=== PATIENT | female | born 1950 | race Caucasian/White ===

== ENCOUNTER 2019-01-02 09:48 | Emergency (ER) | payer OTHER, BC ==
[2019-01-02 09:54] VITALS: BP 136/93; PULSE 98; TEMP 98.9; BMI 25.0
[2019-01-02] MEDS ORDERED: RABIES IMMUNE GLOBULIN 300 UNITS/1 ML VIAL IM ONE ×2 (10:10→10:18)
[2019-01-02] MEDS ORDERED: RABIES VACCINE (PCEC)/PF 2.5 UNIT/VIAL IM ONE ×2 (10:14→12:00)
[2019-01-02] MEDS ORDERED: DIPHTH,PERTUSS(ACELL),TET 0.5 ML DISP.SYRIN IM ONE (10:15)
[2019-01-02] MEDS ORDERED: RABIES IMMUNE GLOBULIN 300 UNITS/1 ML VIAL ONE ×2 (10:34→10:35)
--- NOTE | 2019-01-02 10:57 | PDOC ---
Attending Attestation - Resident Resident Name: Shantanu Terry - ED Attending Attestation I have performed the following: I have examined & evaluated the patient, The case was reviewed & discussed with the resident, I agree w/resident's findings & plan, Exceptions are as noted - HPI HPI: 01/02/19 10:57 Patient was in her dark bedroom and was bitten by a flying animal. Swelling and erythema of the mid forearm, volar aspect. No pain. - Physicial Exam PE: 01/02/19 10:58 Physical exam shows only induration and erythema of the volar aspect of the right forearm, midportion, without tenderness. There is a suggestion of a small puncture centrally. No tenderness swelling or erythema proximally or distally. No lymphadenopathy. - Medical Decision Making 01/02/19 10:59 Assessment: Possible bat bite Plan: Rabies immune globulin, rabies immunization, [facility], follow-up primary physician. 01/02/19 11:32 Patient tolerated the injection of immune globulin and the first dose of rabies vaccine without significant reaction. Injection was performed by Dr. Terry in the usual manner around the affected wound.
--- NOTE | 2019-01-02 11:14 | PDOC ---
History of Present Illness - General Chief Complaint: Bite Stated Complaint: REDNESS, ACHY, RT LOWER ARM, UNK BITE Time Seen by Provider: 01/02/19 10:00 History Source: Patient Exam Limitations: No Limitations - History of Present Illness Initial Comments: 01/02/19 10:27 68 yo female pmh of HTN, HLD and hypothyroidism presents to the ED with a complaint of being bitten possibly by a bat. Pt states while with her dog in her poorly lit bedroom, around 7 30 am, a small dark creature flew in and bit her on her right forearm then quickly flew away. Sudden onset of pain, redness and swelling to location of bite with a small punctuate hole. Denies weakness/ sensory deficits to the right hand, extension of redness, swelling or pain from the location of the bite. Pt cleaned the wound well with alcohol swabs and baking soda, called a bat valver who states "it is unusual for bats to be out this time of year but due to warm weather, it is possible that it was a bat. " Past History - Past Medical History Allergies/Adverse Reactions: Allergies Allergy/AdvReac Type Severity Reaction Status Date / Time Penicillins Allergy Intermediate Verified 01/02/19 09:51 Home Medications: Ambulatory Orders Amlodipine Besylate 5 mg PO DAILY 05/02/16 Levothyroxine [Synthroid -] 100 mcg PO DAILY 05/02/16 Rosuvastatin Calcium [Crestor] 10 mg PO HS 05/02/16 Anemia: No Asthma: No Cancer: No Cardiac Disorders: No CVA: No COPD: No CHF: No Dementia: No Diabetes: No GI Disorders: No Disorders: No HTN: Yes Hypercholesterolemia: Yes Liver Disease: No Seizures: No Thyroid Disease: Yes - Surgical History Abdominal Surgery: No Appendectomy: No Cardiac Surgery: No Cholecystectomy: No Lung Surgery: No Neurologic Surgery: No Orthopedic Surgery: No - Suicide/Smoking/Psychosocial Hx Smoking History: Never smoked Have you smoked in the past 12 months: No Information on smoking cessation initiated: No Hx Alcohol Use: No Drug/Substance Use Hx: No Substance Use Type: None Review of Systems - Review of Systems Constitutional: No: Chills, Fever HEENTM: No: Double Vision, Tinnitus Respiratory: No: Shortness of Breath Cardiac (ROS): No: Chest Pain ABD/GI: No: Constipated, Diarrhea, Nausea, Vomiting : No: Burning, Dysuria Integumentary: Yes: Other (right 4 cm diameter redness, swelling and pain to right forearm) Neurological: No: Headache, Numbness, Paresthesia, Weakness *Physical Exam - Vital Signs Last Vital Signs Temp Pulse Resp BP Pulse Ox 98.9 F 98 H 20 136/93 98 01/02/19 09:48 01/02/19 09:48 01/02/19 09:48 01/02/19 09:48 01/02/19 09:48 - Physical Exam General Appearance: Yes: Nourished, Appropriately Dressed. No: Apparent Distress HEENT: positive: EOMI, KATH, Hearing Grossly Normal. negative: Excessive drooling Neck: positive: Supple. negative: Tender Respiratory/Chest: positive: Lungs Clear Cardiovascular: positive: Regular Rhythm, Regular Rate, S1, S2. negative: Edema , JVD, Murmur Vascular Pulses: Dorsalis-Pedis (R): 4+, Doralis-Pedis (L): 4+ Comments:: 01/02/19 11:39 radial pulses equal bilaterally Gastrointestinal/Abdominal: positive: Flat, Soft. negative: Distended, Guarding , Rebound, Tenderness Extremity: positive: Normal Capillary Refill, Normal Range of Motion Integumentary: positive: Erythema, Swelling, Other (right forearm 4 cm diameter well circumscribed wound with punctate lesion in the center. Swollen and red, blanchable. No numbness, weakness or sensory deficits distal to wound. WOund is clean and no pus/fluctuant area noted) Moderate Sedation - Procedure Monitoring Vital Signs: Procedure Monitoring Vital Signs Temperature 98.9 F 01/02/19 09:48 Pulse Rate 98 H 01/02/19 09:48 Respiratory Rate 20 01/02/19 09:48 Blood Pressure 136/93 01/02/19 09:48 O2 Sat by Pulse Oximetry (%) 98 01/02/19 09:48 Medical Decision Making - Medical Decision Making 01/02/19 11:43 68 yo female presents to ED after being bit by possible bat. Due to inability to r/o potential rabies infection, Rabies IG, rabies vaccine and tetanus given with 4 follow up dates in the DC 5ml IG given to site of wound, tolerated procedure well Vitals WNL PE: see note DC home with PCP follow up, ER follow up for treatment and strict return precautions Pt understands and agrees with plan *DC/Admit/Observation/Transfer Diagnosis at time of Disposition: Bat bite wound - Discharge Dispostion Disposition: HOME Condition at time of disposition: Stable Decision to Admit order: No - Referrals Referrals: Mega Burnett MD [Primary Care Provider] - - Patient Instructions Printed Discharge Instructions: How to Care for a Wild Animal Bite, DI for Animal Bites Additional Instructions: Please return to the ER for continued care and immunoglobulin injections as written in your discharge. Make a follow up appointment with your Family Doctor within the next 48 hours. Have the valver clear your home for further concerns of bats. Return to the ER for confusion, lethargy, headaches, drooling , severe arm pain/further expansion of the wound, fevers, redness, purulent drainage from the wound, numbness or weakness into the right hand. Thank you - Post Discharge Activity Forms/Work/School Notes: Rabies Vaccination F/U [facility].
== END 2019-01-02 11:35 | disposition home or self-care (01) ==
LOC: FER 09:48
PROC: 3E0234Z Introduction of Serum, Toxoid and Vaccine into Muscle, Percutaneous Approach (ICD-10-PCS; principal; 2019-01-02)
PROC: 3E0234Z Introduction of Serum, Toxoid and Vaccine into Muscle, Percutaneous Approach (ICD-10-PCS; 2019-01-02)
DX: S50.871A Other superficial bite of right forearm, initial encounter (principal); W64.XXXA Exposure to other animate mechanical forces, initial encounter; Y93.89 Activity, other specified; Y92.003 Bedroom of unspecified non-institutional (private) residence as the place of occurrence of the external cause
CPT/HCPCS: 90375; 90675; 90715; 99284-25

== ENCOUNTER 2019-01-05 09:35 | Emergency (ER) | payer OTHER, BC ==
[2019-01-05 09:39] VITALS: BP 130/82; PULSE 87; TEMP 99; BMI 25.0
[2019-01-05] MEDS ORDERED: RABIES VACCINE (PCEC)/PF 2.5 UNIT/VIAL IM ONE ×2 (09:43→09:51)
--- NOTE | 2019-01-05 09:43 | PDOC ---
History of Present Illness - General Chief Complaint: Revisit,Rabies Injection Stated Complaint: RABIES VACCINE Time Seen by Provider: 01/05/19 09:42 Past History - Past Medical History Allergies/Adverse Reactions: Allergies Allergy/AdvReac Type Severity Reaction Status Date / Time Penicillins Allergy Intermediate Verified 01/05/19 09:35 Home Medications: Ambulatory Orders Amlodipine Besylate 5 mg PO DAILY 05/02/16 Levothyroxine [Synthroid -] 100 mcg PO DAILY 05/02/16 Rosuvastatin Calcium [Crestor] 10 mg PO HS 05/02/16 Anemia: No Asthma: No Cancer: No Cardiac Disorders: No CVA: No COPD: No CHF: No Dementia: No Diabetes: No GI Disorders: No Disorders: No HTN: Yes Hypercholesterolemia: Yes Liver Disease: No Seizures: No Thyroid Disease: Yes - Surgical History Abdominal Surgery: No Appendectomy: No Cardiac Surgery: No Cholecystectomy: No Lung Surgery: No Neurologic Surgery: No Orthopedic Surgery: No - Suicide/Smoking/Psychosocial Hx Smoking History: Never smoked Have you smoked in the past 12 months: No Information on smoking cessation initiated: No Hx Alcohol Use: No Drug/Substance Use Hx: No Substance Use Type: None *Physical Exam - Vital Signs Last Vital Signs Temp Pulse Resp BP Pulse Ox 99 F 87 18 130/82 97 01/05/19 09:35 01/05/19 09:35 01/05/19 09:35 01/05/19 09:35 01/05/19 09:35 Moderate Sedation - Procedure Monitoring Vital Signs: Procedure Monitoring Vital Signs Temperature 99 F 01/05/19 09:35 Pulse Rate 87 01/05/19 09:35 Respiratory Rate 18 01/05/19 09:35 Blood Pressure 130/82 01/05/19 09:35 O2 Sat by Pulse Oximetry (%) 97 01/05/19 09:35 *DC/Admit/Observation/Transfer - Discharge Dispostion Condition at time of disposition: Stable - Referrals Referrals: Mega Burnett MD [Primary Care Provider] - - Patient Instructions - Post Discharge Activity
--- NOTE | 2019-01-05 09:57 | PDOC ---
History of Present Illness - General Chief Complaint: Revisit,Rabies Injection Stated Complaint: RABIES VACCINE Time Seen by Provider: 01/05/19 09:42 - History of Present Illness Initial Comments: 01/05/19 09:51 68yo F presents to the ED for 2nd rabies vaccine after a possible bat bite 4 days ago. Pt has been feeling well, states initially bite wound was itchy but this has resolved. No redness or pain to bite wound. Denies fevers, chills, cp, sob, dizziness, headache, weakness, numbness. Past History - Past Medical History Allergies/Adverse Reactions: Allergies Allergy/AdvReac Type Severity Reaction Status Date / Time Penicillins Allergy Intermediate Verified 01/05/19 09:35 Home Medications: Ambulatory Orders Amlodipine Besylate 5 mg PO DAILY 05/02/16 Levothyroxine [Synthroid -] 100 mcg PO DAILY 05/02/16 Rosuvastatin Calcium [Crestor] 10 mg PO HS 05/02/16 Anemia: No Asthma: No Cancer: No Cardiac Disorders: No CVA: No COPD: No CHF: No Dementia: No Diabetes: No GI Disorders: No Disorders: No HTN: Yes Hypercholesterolemia: Yes Liver Disease: No Seizures: No Thyroid Disease: Yes - Surgical History Abdominal Surgery: No Appendectomy: No Cardiac Surgery: No Cholecystectomy: No Lung Surgery: No Neurologic Surgery: No Orthopedic Surgery: No - Suicide/Smoking/Psychosocial Hx Smoking History: Never smoked Have you smoked in the past 12 months: No Information on smoking cessation initiated: No Hx Alcohol Use: No Drug/Substance Use Hx: No Substance Use Type: None Review of Systems - Review of Systems Comments:: 01/05/19 09:52 GENERAL/CONSTITUTIONAL: No fever or chills. No weakness. HEAD, EYES, EARS, NOSE AND THROAT: No change in vision. No ear pain or discharge. No sore throat. GASTROINTESTINAL: No nausea, vomiting, diarrhea or constipation. GENITOURINARY: No dysuria, frequency, or change in urination. CARDIOVASCULAR: No chest pain or shortness of breath. RESPIRATORY: No cough, wheezing, or hemoptysis. MUSCULOSKELETAL: No joint or muscle swelling or pain. No neck or back pain. SKIN: No rash NEUROLOGIC: No headache, vertigo, loss of consciousness, or change in strength/ sensation. ENDOCRINE: No increased thirst. No abnormal weight change. HEMATOLOGIC/LYMPHATIC: No anemia, easy bleeding, or history of blood clots. ALLERGIC/IMMUNOLOGIC: No hives or skin allergy. *Physical Exam - Vital Signs Last Vital Signs Temp Pulse Resp BP Pulse Ox 99 F 87 18 130/82 97 01/05/19 09:35 02 09:35 01/05/19 09:35 01/05/19 09:35 01/05/19 09:35 - Physical Exam Comments: 01/05/19 09:52 GENERAL: Awake, alert, and fully oriented, in no acute distress HEAD: No signs of trauma EYES: PERRLA, EOMI, sclera anicteric, conjunctiva clear ENT: Auricles normal inspection, hearing grossly normal, nares patent, oropharynx clear without exudates. Moist mucosa NECK: Normal ROM, supple, no lymphadenopathy, JVD, or masses LUNGS: Breath sounds equal, clear to auscultation bilaterally. No wheezes, and no crackles HEART: Regular rate and rhythm, normal S1 and S2, no murmurs, rubs or gallops ABDOMEN: Soft, nontender, normoactive bowel sounds. No guarding, no rebound. No masses EXTREMITIES: Normal range of motion, no edema. No clubbing or cyanosis. No cords, erythema, or tenderness NEUROLOGICAL: Normal speech, cranial nerves intact, negative pronator drift, 5/ 5 strength in all 4 extremities, normal sensation to light touch in all 4 extremities, normal cerebellar exam, normal gait, normal reflexes and tone SKIN: small puncture wound to volar aspect of the right mid forearm without tenderness, edema, fluctuance, induration. No streaking. Moderate Sedation - Procedure Monitoring Vital Signs: Procedure Monitoring Vital Signs Temperature 99 F 01/05/19 09:35 Pulse Rate 87 01/05/19 09:35 Respiratory Rate 18 01/05/19 09:35 Blood Pressure 130/82 01/05/19 09:35 O2 Sat by Pulse Oximetry (%) 97 01/05/19 09:35 Medical Decision Making - Medical Decision Making 01/05/19 09:57 68yo F presents for 2nd rabies vaccinations. No complications. Vaccine administered. Pt asymptomatic, stable for DC home I discussed the physical exam findings, ancillary test results and final diagnoses with the patient. I answered all of the patient's questions. The patient was satisfied with the care received and felt comfortable with the discharge plan and treatment plan. The patient will call their primary care physician within 24 hours to arrange follow-up and will return to the Emergency Department with any new, persistent or worsening symptoms. *DC/Admit/Observation/Transfer Diagnosis at time of Disposition: Bite wound, Need for rabies vaccination, Visit for wound check - Discharge Dispostion Disposition: HOME Condition at time of disposition: Stable - Referrals Referrals: Mega Burnett MD [Primary Care Provider] - - Patient Instructions Printed Discharge Instructions: DI for Rabies Vaccine Additional Instructions: Return on 01/09 for your 3rd rabies vaccine Return to the emergency department if you have any new, worsening, or concerning symptoms - Post Discharge Activity - Attestations Physician Attestion: 01/05/19 10:01 I, Dr. Fany Altman MD, attest that this document has been prepared under my direction and personally reviewed by me in its entirety. I further attest, that it accurately reflects all work, treatment, procedures and medical decision -making performed by me.
== END 2019-01-05 10:05 | disposition home or self-care (01) ==
LOC: FER 09:35
PROC: 3E0234Z Introduction of Serum, Toxoid and Vaccine into Muscle, Percutaneous Approach (ICD-10-PCS; principal; 2019-01-05)
DX: Z23 Encounter for immunization (principal); Z20.3 Contact with and (suspected) exposure to rabies
CPT/HCPCS: 90471; 90675; 99282-25

== ENCOUNTER 2019-01-09 08:43 | Emergency (ER) | payer OTHER, BC ==
[2019-01-09] MEDS ORDERED: RABIES VACCINE (PCEC)/PF 2.5 UNIT/VIAL IM ONE ×2 (08:53→08:56)
[2019-01-09 08:55] VITALS: BP 122/78; PULSE 78; TEMP 98.3; BMI 25.0
--- NOTE | 2019-01-09 09:01 | PDOC ---
History of Present Illness - General Chief Complaint: Revisit,Rabies Injection Stated Complaint: rabies vaccination Time Seen by Provider: 01/09/19 08:51 - History of Present Illness Initial Comments: 01/09/19 09:03 68 years old past medical history significant for hypertension hyperlipidemia hypothyroidism presented to the ED on January 02 with a scratch from a bat was initiated on the rabies protocol is here for her third of fourth vaccine treatment Patient has no complaints at this time denies any fever chills headache chest pain shortness of breath nausea vomiting diarrhea. Past History - Past Medical History Allergies/Adverse Reactions: Allergies Allergy/AdvReac Type Severity Reaction Status Date / Time Penicillins Allergy Intermediate Verified 01/09/19 08:45 Home Medications: Ambulatory Orders Amlodipine Besylate 5 mg PO DAILY 05/02/16 Levothyroxine [Synthroid -] 100 mcg PO DAILY 05/02/16 Rosuvastatin Calcium [Crestor] 10 mg PO HS 05/02/16 Anemia: No Asthma: No Cancer: No Cardiac Disorders: No CVA: No COPD: No CHF: No Dementia: No Diabetes: No GI Disorders: No Disorders: No HTN: Yes Hypercholesterolemia: Yes Liver Disease: No Seizures: No Thyroid Disease: Yes - Surgical History Abdominal Surgery: No Appendectomy: No Cardiac Surgery: No Cholecystectomy: No Lung Surgery: No Neurologic Surgery: No Orthopedic Surgery: No - Suicide/Smoking/Psychosocial Hx Smoking History: Never smoked Have you smoked in the past 12 months: No Hx Alcohol Use: No Drug/Substance Use Hx: No Substance Use Type: None Review of Systems - Review of Systems Able to Perform ROS?: Yes Comments:: 01/09/19 09:04 ROS: A complete review of 10 out of 10 review of systems is taken and is negative apart from what is previously mentioned below and in the HPI. *Physical Exam - Vital Signs Last Vital Signs Temp Pulse Resp BP Pulse Ox 98.3 F 78 18 122/78 100 01/09/19 08:44 01/09/19 08:44 01/09/19 08:44 01/09/19 08:44 01/09/19 08:44 - Physical Exam Comments: 01/09/19 09:03 Vitals: Triage Vital signs reviewed General Appearance: no acute distress, well nourished well developed, Head: Atraumatic, Chest Wall: Nontender Cardiac: Regular rate and rhythym, no murmurs, no rubs, no gallops, Lungs: Clear to auscultation bilateral, good air movement bilaterally, Abdomen: Soft, non distended, normal bowel sounds, non tender to palpation Extremities: Full range of motion to all extremities, no cyanosis, clubbing, or edema Skin: Warm and dry, no rashes or lesions, no rash, no petechiae Psych: normal mood, normal affect Moderate Sedation - Procedure Monitoring Vital Signs: Procedure Monitoring Vital Signs Temperature 98.3 F 01/09/19 08:44 Pulse Rate 78 01/09/19 08:44 Respiratory Rate 18 01/09/19 08:44 Blood Pressure 122/78 01/09/19 08:44 O2 Sat by Pulse Oximetry (%) 100 01/09/19 08:44 Medical Decision Making - Medical Decision Making 01/09/19 09:04 Well-appearing no apparent distress here for vaccine for rabies #3 Findings, the need for follow-up, strict return instructions discussed with patient. *DC/Admit/Observation/Transfer Diagnosis at time of Disposition: Need for rabies vaccination - Discharge Dispostion Disposition: HOME Condition at time of disposition: Stable Decision to Admit order: No - Referrals - Patient Instructions Printed Discharge Instructions: DI for Rabies Vaccine Additional Instructions: Return next Saturday as scheduled for your final rabies vaccine. Or immediately for any signs or worrisome symptoms. - Post Discharge Activity
== END 2019-01-09 09:12 | disposition home or self-care (01) ==
LOC: FER 08:43
PROC: 3E0234Z Introduction of Serum, Toxoid and Vaccine into Muscle, Percutaneous Approach (ICD-10-PCS; principal; 2019-01-09)
DX: Z23 Encounter for immunization (principal); Z20.3 Contact with and (suspected) exposure to rabies; I10 Essential (primary) hypertension; E78.5 Hyperlipidemia, unspecified; E03.9 Hypothyroidism, unspecified
CPT/HCPCS: 90471; 90675; 99281-25

== ENCOUNTER 2019-01-16 08:26 | Emergency (ER) | payer OTHER, BC ==
[2019-01-16 08:35] VITALS: BP 122/74; PULSE 85; TEMP 98.7; BMI 25.0
[2019-01-16] MEDS ORDERED: RABIES VACCINE (PCEC)/PF 2.5 UNIT/VIAL IM ONE ×2 (08:40→09:00)
--- NOTE | 2019-01-16 08:44 | PDOC ---
History of Present Illness - General Chief Complaint: Revisit,Rabies Injection Stated Complaint: RABIES VACCINE Time Seen by Provider: 01/16/19 08:44 - History of Present Illness Initial Comments: 01/16/19 09:17 Patient presents for fourth in her series of rabies immunizations after bat bite. No significant reaction to prior injections. No localized inflammation. Alert, vital signs normal. Physical exam normal Final injection administered. Follow-up primary physician. Past History - Past Medical History Allergies/Adverse Reactions: Allergies Allergy/AdvReac Type Severity Reaction Status Date / Time Penicillins Allergy Intermediate Verified 01/16/19 08:30 Home Medications: Ambulatory Orders Amlodipine Besylate 5 mg PO DAILY 05/02/16 Levothyroxine [Synthroid -] 100 mcg PO DAILY 05/02/16 Rosuvastatin Calcium [Crestor] 10 mg PO HS 05/02/16 Anemia: No Asthma: No Cancer: No Cardiac Disorders: No CVA: No COPD: No CHF: No Dementia: No Diabetes: No GI Disorders: No Disorders: No HTN: Yes Hypercholesterolemia: Yes Liver Disease: No Seizures: No Thyroid Disease: Yes - Surgical History Abdominal Surgery: No Appendectomy: No Cardiac Surgery: No Cholecystectomy: No Lung Surgery: No Neurologic Surgery: No Orthopedic Surgery: No - Suicide/Smoking/Psychosocial Hx Smoking History: Never smoked Have you smoked in the past 12 months: No Hx Alcohol Use: No Drug/Substance Use Hx: No Substance Use Type: None *Physical Exam - Vital Signs Last Vital Signs Temp Pulse Resp BP Pulse Ox 98.7 F 85 16 122/74 99 01/16/19 08:27 01/16/19 08:27 01/16/19 08:27 01/16/19 08:27 01/16/19 08:27 Moderate Sedation - Procedure Monitoring Vital Signs: Procedure Monitoring Vital Signs Temperature 98.7 F 01/16/19 08:27 Pulse Rate 85 01/16/19 08:27 Respiratory Rate 16 01/16/19 08:27 Blood Pressure 122/74 01/16/19 08:27 O2 Sat by Pulse Oximetry (%) 99 01/16/19 08:27 *DC/Admit/Observation/Transfer Diagnosis at time of Disposition: Need for rabies vaccination - Discharge Dispostion Disposition: HOME Condition at time of disposition: Stable Decision to Admit order: No - Referrals - Patient Instructions Printed Discharge Instructions: DI for Rabies Vaccine - Post Discharge Activity
== END 2019-01-16 08:55 | disposition home or self-care (01) ==
LOC: FER 08:26
PROC: 3E0234Z Introduction of Serum, Toxoid and Vaccine into Muscle, Percutaneous Approach (ICD-10-PCS; principal; 2019-01-16)
DX: Z23 Encounter for immunization (principal); Z20.3 Contact with and (suspected) exposure to rabies
CPT/HCPCS: 90471; 90675; 99281-25

== ENCOUNTER 2025-01-18 09:34 | Day surgery (SDC) | payer OTHER, BC ==
[2025-01-14 10:55] VITALS: BMI 22.8
[2025-01-18] MEDS ORDERED: PROPOFOL 120 ML ONE (10:53)
[2025-01-18 11:41] VITALS: PULSE 98; RESP 16; TEMP 97.1
[2025-01-18 12:07] VITALS: BP 129/58
== END 2025-01-18 12:30 | disposition home or self-care (01) ==
LOC: FASU-ENDO 09:34
PROVIDERS: ATTEND Internal Medicine Gastroenterology
PROC: 0DBL8ZX Excision of Transverse Colon, Via Natural or Artificial Opening Endoscopic, Diagnostic (ICD-10-PCS; 2025-01-18)
PROC: 0DBH8ZX Excision of Cecum, Via Natural or Artificial Opening Endoscopic, Diagnostic (ICD-10-PCS; principal; 2025-01-18 11:08)
DX: Z12.11 Encounter for screening for malignant neoplasm of colon (principal); D12.0 Benign neoplasm of cecum; D12.2 Benign neoplasm of ascending colon; K57.30 Diverticulosis of large intestine without perforation or abscess without bleeding; Z86.0109 Personal history of other colon polyps; Z83.719 Family history of colon polyps, unspecified
CPT/HCPCS: 88305-TC